=== PATIENT | male | born 1975 | race Caucasian/White ===

== ENCOUNTER → 2016-11-16 | Outpatient (CLI) | payer OTHER | LOC: RAD 14:15 | DX: R06.02 Shortness of breath (principal) | CPT/HCPCS: 71020 ==

== ENCOUNTER → 2016-12-02 | Outpatient (CLI) | payer OTHER | LOC: CT 11:21 | DX: R06.02 Shortness of breath (principal); N20.0 Calculus of kidney; R91.8 Other nonspecific abnormal finding of lung field | CPT/HCPCS: 71250 ==